=== PATIENT | male | born 1985 | race Caucasian/White ===

== ENCOUNTER 2018-08-12 13:28 | Emergency (ER) | payer BC, OTHER ==
[~2018-08-12] VITALS: Ht 160 cm; Wt 77.1 kg
[2018-08-12 13:45] LABS: *BILIRUBIN,URIN NEGATIVE (NEGATIVE); *BLOOD, URINE 3+ (NEGATIVE); *CLARITY,URINE CLOUDY (CLEAR); *COLOR,URINE RED (YELLOW); *KETONES,URINE NEGATIVE (NEGATIVE); LEUKOCYTE ESTERASE ,URINE NEGATIVE (NEGATIVE); NITRITE, URINE NEGATIVE (NEGATIVE); UGLUCOSE NEGATIVE (NEGATIVE)
[2018-08-12 13:46] LABS: BACTERIA,URINE FEW /HPF (NONE SEEN); RBC,URINE TNTC /HPF (0-3); SQUAMOUS EPITHELIAL CELL,UR FEW /HPF (NONE SEEN)
--- NOTE | 2018-08-12 14:04 | NUR ---
URINE SENT TO LAB.
[2018-08-12 14:18] LABS: BASOPHILS # (AUTO) 0.1 K/uL (0.0-8.0); BASOPHILS % (AUTO) 1.2 % (0.0-2.0); EOSINOPHILS # (AUTO) 0.2 K/uL (0.0-0.7); HEMATOCRIT 41.7 % (36.7-47.1); LYMPHOCYTES # (AUTO) 1.5 K/uL (20.0-40.0); LYMPHOCYTES % (AUTO) 16.3 % (20.5-51.5); MEAN CORPUSCULAR HEMOGLOBIN 29.6 uug (23.8-33.4); MEAN CORPUSCULAR HGB CONC 34 g/dL (32.5-36.3); MEAN CORPUSCULAR VOLUME 88.6 fL (73.0-96.2); MONOCYTES # (AUTO) 0.8 K/uL (2.0-10.0); NEUTROPHILS # (AUTO) 6.8 K/uL (1.8-8.9); NEUTROPHILS % (AUTO) 72.5 % (38.5-71.5); PLATELET COUNT (AUTO) 344 K/uL (152-348); RED BLOOD CELL COUNT(AUTO) 4.71 MIL/uL (4.06-5.63); WHITE BLOOD COUNT (AUTO) 9.4 K/uL (3.6-10.2)
[2018-08-12 14:28] LABS: POTASSIUM 3.4 mmol/L (3.5-5.1)
[2018-08-12 14:34] LABS: BILIRUBIN,DIRECT 0.1 mg/dL (0.0-0.2); BILIRUBIN,TOTAL 0.3 mg/dL (0.2-1.0); TOTAL PROTEIN, SERUM 8.1 g/dL (6.4-8.2)
--- NOTE | 2018-08-12 15:02 | NUR ---
DC AND FOLLOW UP INSTRUCTIONS GIVEN AND EXPLAINED TO PATIENT WHO STATES HE UNDERSTANDS ALL INSTRUCTIONS.
== END 2018-08-12 15:04 | disposition home or self-care (01) ==
LOC: ER 13:30
DX: R31.9 Hematuria, unspecified (principal)
CPT/HCPCS: 36415; 85025; 87086; A4663

== ENCOUNTER 2019-03-18 04:25 | Emergency (ER) | payer BC, OTHER ==
[~2019-03-18] VITALS: Ht 165.1 cm; Wt 74.8 kg
--- NOTE | 2019-03-18 04:25 | NUR ---
Dr. Madsen at bedside for MSE
[2019-03-18 05:17] LABS: *BILIRUBIN,URIN NEGATIVE (NEGATIVE); *BLOOD, URINE 3+ (NEGATIVE); *CLARITY,URINE SLIGHTLY CLOUDY (CLEAR); *COLOR,URINE YELLOW (YELLOW); *KETONES,URINE NEGATIVE (NEGATIVE); *UROBILINOGEN,URINE 0.2 E.U./dl (NORMAL); LEUKOCYTE ESTERASE ,URINE NEGATIVE (NEGATIVE); NITRITE, URINE NEGATIVE (NEGATIVE); UGLUCOSE NEGATIVE (NEGATIVE)
[2019-03-18 05:25] LABS: POTASSIUM 3.8 mmol/L (3.5-5.1)
[2019-03-18 05:29] LABS: BASOPHILS # (AUTO) 0.1 K/uL (0.0-8.0); BASOPHILS % (AUTO) 1.1 % (0.0-2.0); EOSINOPHILS # (AUTO) 0.2 K/uL (0.0-0.7); EOSINOPHILS % (AUTO) 2.4 % (0.0-7.0); HEMATOCRIT 42.6 % (36.7-47.1); HEMOGLOBIN 14.6 g/dL (12.5-16.3); LYMPHOCYTES # (AUTO) 2.1 K/uL (20.0-40.0); LYMPHOCYTES % (AUTO) 22.1 % (20.5-51.5); MEAN CORPUSCULAR HEMOGLOBIN 30.8 uug (23.8-33.4); MEAN CORPUSCULAR HGB CONC 34 g/dL (32.5-36.3); MEAN CORPUSCULAR VOLUME 89.5 fL (73.0-96.2); MONOCYTES # (AUTO) 0.8 K/uL (2.0-10.0); MONOCYTES % (AUTO) 9.1 % (0.0-11.0); NEUTROPHILS # (AUTO) 6.1 K/uL (1.8-8.9); NEUTROPHILS % (AUTO) 65.3 % (38.5-71.5); PLATELET COUNT (AUTO) 387 K/uL (152-348); RED BLOOD CELL COUNT(AUTO) 4.76 MIL/uL (4.06-5.63); WHITE BLOOD COUNT (AUTO) 9.4 K/uL (3.6-10.2)
[2019-03-18 05:31] LABS: BACTERIA,URINE NONE SEEN /HPF (NONE SEEN); MUCUS,URINE FEW /LPF (0-FEW); RBC,URINE 80-100 /HPF (0-3); SQUAMOUS EPITHELIAL CELL,UR FEW /HPF (NONE SEEN); WBC,URINE 0-3 /HPF (0-3)
[2019-03-18 05:35] LABS: *AMPHETAMINE, URINE NEGATIVE (NEGATIVE); *BARBITURATE, URINE NEGATIVE (NEGATIVE); *CANNABINOID, URINE NEGATIVE (NEGATIVE); *COCCAINE, URINE NEGATIVE (NEGATIVE); *OPIATE, URINE NEGATIVE (NEGATIVE); *PHENCYCLIDINE SCREEN,URINE NEGATIVE (NEGATIVE)
--- NOTE | 2019-03-18 06:56 | NUR ---
Patient discharged to home in stable conditon. Written and verbal after care instructions given. Patient verbalizes understanding of instructions. Patient ambulating with steady gait. Denies any dizziness, AHUMADA, blurred vision, nausea, vomiting.
[2019-03-18 06:58] VITALS: BP 157/104
== END 2019-03-18 06:56 | disposition home or self-care (01) ==
LOC: ER 04:27
DX: I10 Essential (primary) hypertension (principal); R31.9 Hematuria, unspecified; D47.3 Essential (hemorrhagic) thrombocythemia
CPT/HCPCS: 36415; 80307; 85025; 93005; A4663

== ENCOUNTER 2019-04-29 11:55 | Outpatient (CLI) | payer BC, OTHER | END 2019-04-29 23:59 | disposition home or self-care (01) | LOC: RT 11:55 | PROVIDERS: ATTEND Family Medicine | DX: I10 Essential (primary) hypertension (principal) | CPT/HCPCS: 93307 ==

== ENCOUNTER 2020-12-20 02:18 | Emergency (ER) | payer BC, OTHER ==
[~2020-12-20] VITALS: Ht 162.6 cm; Wt 81.6 kg
[2020-12-20 03:16] LABS: *BILIRUBIN,URIN NEGATIVE (NEGATIVE); *BLOOD, URINE 3+ (NEGATIVE); *CLARITY,URINE TURBID (CLEAR); *COLOR,URINE RED (YELLOW); *KETONES,URINE NEGATIVE (NEGATIVE); *UROBILINOGEN,URINE 0.2 E.U./dl (NORMAL); LEUKOCYTE ESTERASE ,URINE NEGATIVE (NEGATIVE); NITRITE, URINE NEGATIVE (NEGATIVE); UGLUCOSE NEGATIVE (NEGATIVE)
[2020-12-20 03:20] LABS: BACTERIA,URINE NONE SEEN /HPF (NONE SEEN); RBC,URINE TNTC /HPF (0-3); SQUAMOUS EPITHELIAL CELL,UR NONE SEEN /HPF (NONE SEEN); WBC,URINE 0-3 /HPF (0-3)
--- NOTE | 2020-12-20 03:28 | NUR ---
Patient discharged to home in stable condition. Written and verbal after care instructions given. Patient verbalizes understanding of instructions. Stressed follow up or return to ER for worsening s/s.
[2020-12-20 03:29] VITALS: BP 145/89
== END 2020-12-20 03:30 | disposition home or self-care (01) ==
LOC: ER 02:23
DX: R31.0 Gross hematuria (principal); I10 Essential (primary) hypertension; E78.5 Hyperlipidemia, unspecified
CPT/HCPCS: A4663

== ENCOUNTER 2021-04-18 21:48 | Emergency (ER) | payer BC, OTHER ==
[~2021-04-18] VITALS: Ht 157.5 cm; Wt 81.6 kg
[2021-04-18] MEDS ORDERED: IBUPROFEN 600 MG TABLET PO ONE (22:15)
[2021-04-18] MEDS ORDERED: IBUP-1955 PO (22:18)
[2021-04-18] MEDS ORDERED: IBUPROFEN 600 MG TABLET ONE (22:19)
== END 2021-04-18 22:31 | disposition home or self-care (01) ==
LOC: ER 21:51
DX: S90.31XA Contusion of right foot, initial encounter (principal); I10 Essential (primary) hypertension; E78.5 Hyperlipidemia, unspecified; Z79.1 Long term (current) use of non-steroidal anti-inflammatories (NSAID); X58.XXXA Exposure to other specified factors, initial encounter; Y93.89 Activity, other specified; Y92.89 Other specified places as the place of occurrence of the external cause; Y99.8 Other external cause status
CPT/HCPCS: 73630; A4663

== ENCOUNTER 2021-10-12 22:00 | Emergency (ER) | payer BC, OTHER ==
[~2021-10-12] VITALS: Ht 160 cm; Wt 80.7 kg
[~2021-10-12 22:00] MED LIST: IBUP-1955 PO
[2021-10-13 00:38] LABS: MEAN CORPUSCULAR HEMOGLOBIN 30.1 uug (23.8-33.4)
[2021-10-13 00:42] LABS: HEMATOCRIT 40.9 % (36.7-47.1); MEAN CORPUSCULAR VOLUME 86.1 fL (73.0-96.2); PLATELET COUNT (AUTO) 430 K/uL (152-348)
[2021-10-13 00:44] LABS: CREATININE 1.3 mg/dL (0.6-1.3); MAGNESIUM 1.9 mg/dL (1.8-2.4); POTASSIUM 3.1 mmol/L (3.5-5.1)
[2021-10-13] MEDS ORDERED: POTASSIUM BICARBONATE/CIT AC 25 MEQ TABLET.EFF PO ONE (01:00)
[2021-10-13] MEDS ORDERED: POTASSIUM BICARBONATE/CIT AC 25 MEQ TABLET.EFF ONE (01:23)
[2021-10-13] MEDS ORDERED: NAPR-1164 PO (02:51)
--- NOTE | 2021-10-13 03:42 | NUR ---
Patient discharged to home in stable condition. Written and verbal after care instructions given. Patient verbalizes understanding of instructions. Stressed follow up or return to ER for worsening s/s. Patient out of ER with steady gait, no acute signs of distress, VSS, all belongings taken, provided with copies of xray results.
[2021-10-13 03:43] VITALS: BP 145/90
== END 2021-10-13 05:15 | disposition home or self-care (01) ==
LOC: ER 22:00
DX: E08.22 Diabetes mellitus due to underlying condition with diabetic chronic kidney disease (principal); M76.62 Achilles tendinitis, left leg; E87.6 Hypokalemia; E83.42 Hypomagnesemia; I10 Essential (primary) hypertension
CPT/HCPCS: 36415; 73600; 83735; 85025; 85651; A4663

== ENCOUNTER 2022-11-03 21:41 | Emergency (ER) | payer BC, OTHER ==
[~2022-11-03] VITALS: Ht 160 cm; Wt 79.4 kg
[~2022-11-03 21:41] MED LIST changes: +NAPR-1164 PO
[2022-11-03 21:53] VITALS: O2SAT 99
== END 2022-11-03 23:34 | disposition home or self-care (01) ==
LOC: ER 21:43
DX: S92.251A Displaced fracture of navicular [scaphoid] of right foot, initial encounter for closed fracture (principal); S93.324A Dislocation of tarsometatarsal joint of right foot, initial encounter; Z79.1 Long term (current) use of non-steroidal anti-inflammatories (NSAID); X50.1XXA Overexertion from prolonged static or awkward postures, initial encounter; Y93.67 Activity, basketball; Y92.89 Other specified places as the place of occurrence of the external cause; Y99.8 Other external cause status
CPT/HCPCS: 73630; A4663

== ENCOUNTER 2023-03-27 00:53 | Inpatient (IN) | payer BC, OTHER ==
[~2023-03-27] VITALS: Ht 160 cm; Wt 80.3 kg
[2023-03-27] MEDS ORDERED: ONDANSETRON 4 MG/2 ML VIAL IV ONE (01:30)
[2023-03-27] MEDS ORDERED: HYDROMORPHONE 1 MG/1 ML DISP.SYRIN IV ONE (01:30)
[2023-03-27] MEDS ORDERED: IV NORMAL SALINE 1000 ML BAG IV ONE (01:30)
[2023-03-27] MEDS ORDERED: KETOROLAC TROMETHAMINE 15 MG INJ IVP ONE (01:30)
[2023-03-27] MEDS ORDERED: ONDANSETRON 4 MG/2 ML VIAL ONE (01:37)
[2023-03-27] MEDS ORDERED: HYDROMORPHONE 1 MG/1 ML DISP.SYRIN ONE (01:37)
[2023-03-27] MEDS ORDERED: KETOROLAC TROMETHAMINE 15 MG INJ ONE (01:37)
[2023-03-27 01:54] LABS: BASOPHILS # (AUTO) 0.2 K/UL (0.0-0.2); BASOPHILS % (AUTO) 0.9 % (0.0-2.0); EOSINOPHILS % (AUTO) 0.1 % (0.0-7.0); HEMATOCRIT 37.7 % (36.7-47.1); HEMOGLOBIN 12.8 g/dL (12.5-16.3); LYMPHOCYTES # (AUTO) 0.6 K/uL (0.8-4.8); LYMPHOCYTES % (AUTO) 2.5 % (20.5-51.5); MEAN CORPUSCULAR HEMOGLOBIN 30.4 uug (23.8-33.4); MEAN CORPUSCULAR HGB CONC 34 g/dL (32.5-36.3); MEAN CORPUSCULAR VOLUME 89.7 fL (73.0-96.2); MONOCYTES % (AUTO) 4.3 % (0.0-11.0); NEUTROPHILS # (AUTO) 21.1 K/uL (1.8-8.9); NEUTROPHILS % (AUTO) 92.2 % (38.5-71.5); PLATELET COUNT (AUTO) 460 K/uL (152-348); RED BLOOD CELL COUNT(AUTO) 4.21 MIL/uL (4.06-5.63); WHITE BLOOD COUNT (AUTO) 22.8 K/uL (3.6-10.2)
[2023-03-27 01:55] LABS: DIFFERENTIAL COMMENT 1
[2023-03-27 01:57] LABS: *BLOOD, URINE 3+ (NEGATIVE); *KETONES,URINE TRACE (NEGATIVE); *UROBILINOGEN,URINE 0.2 E.U./dl (NORMAL); LEUKOCYTE ESTERASE ,URINE TRACE (NEGATIVE); NITRITE, URINE NEGATIVE (NEGATIVE); PH,URINE 6.5 (5.0-8.0); UGLUCOSE NEGATIVE (NEGATIVE)
[2023-03-27 02:10] LABS: *BILIRUBIN,URIN 1+ (NEGATIVE); *PROTEIN,URINE 3+ (NEGATIVE)
[2023-03-27 02:11] LABS: *CLARITY,URINE SLIGHTLY CLOUDY (CLEAR); *COLOR,URINE AMBER (YELLOW)
[2023-03-27 02:13] LABS: CALCIUM 9.2 mg/dL (8.5-10.1); CREATININE 1.6 mg/dL (0.6-1.3); POTASSIUM 3.8 mmol/L (3.5-5.1)
[2023-03-27 02:19] LABS: BILIRUBIN,DIRECT 0.2 mg/dL (0.0-0.2); TOTAL PROTEIN, SERUM 8.7 g/dL (6.4-8.2)
[2023-03-27 02:30] LABS: BACTERIA,URINE FEW /HPF (NONE SEEN); RBC,URINE TNTC /HPF (0-3); SQUAMOUS EPITHELIAL CELL,UR NONE SEEN /HPF (NONE SEEN)
[2023-03-27] MEDS ORDERED: MORPHINE SULFATE 2 MG/1 ML DISP.SYRIN IV PRN (06:00)
[2023-03-27] MEDS ORDERED: CEFTRIAXONE 1 G in IV DEXTROSE 5% 50 ML IV SCH (06:00)
[2023-03-27 07:50] LABS: BASOPHILS # (AUTO) 0.1 K/UL (0.0-0.2); BASOPHILS % (AUTO) 0.4 % (0.0-2.0); HEMATOCRIT 34.5 % (36.7-47.1); HEMOGLOBIN 11.5 g/dL (12.5-16.3); LYMPHOCYTES # (AUTO) 0.6 K/uL (0.8-4.8); LYMPHOCYTES % (AUTO) 3.3 % (20.5-51.5); MEAN CORPUSCULAR HGB CONC 33 g/dL (32.5-36.3); MEAN CORPUSCULAR VOLUME 89.7 fL (73.0-96.2); MONOCYTES % (AUTO) 5.5 % (0.0-11.0); NEUTROPHILS # (AUTO) 16.3 K/uL (1.8-8.9); NEUTROPHILS % (AUTO) 90.8 % (38.5-71.5); PLATELET COUNT (AUTO) 434 K/uL (152-348); RED BLOOD CELL COUNT(AUTO) 3.85 MIL/uL (4.06-5.63); RED CELL DISTRIBUTION WIDTH 14.2 % (12.1-16.2); WHITE BLOOD COUNT (AUTO) 17.9 K/uL (3.6-10.2)
[2023-03-27 07:51] LABS: DIFFERENTIAL COMMENT 1
[2023-03-27] MEDS ORDERED: CEFTRIAXONE /D5W 50ML IVPB **ER PYXIS IV ONE (08:24)
[2023-03-27] MEDS ORDERED: MORPHINE SULFATE 2 MG/1 ML DISP.SYRIN ONE (12:15)
[2023-03-27 14:26] LABS: HEMATOCRIT 33.1 % (36.7-47.1); HEMOGLOBIN 10.9 g/dL (12.5-16.3)
[2023-03-27] MEDS ORDERED: MORPHINE SULFATE 4 MG/1 ML DISP.SYRIN ONE ×2 (14:27→18:15)
[2023-03-27] MEDS: MORPHINE SULFATE 4 MG/1 ML DISP.SYRIN IV PRN ×3 (14:37→22:59)
[2023-03-27] MEDS: IV NS 1000 ML 1,000 ML IV PRN ×2 (14:49→20:49)
[2023-03-27] MEDS ORDERED: ALLO100T PO (18:14)
[2023-03-27] MEDS ORDERED: ATOR20TA PO (18:14)
[2023-03-27] MEDS ORDERED: AMLO5TAB4 PO (18:14)
[2023-03-27] MEDS ORDERED: OLME20TA13 PO (18:14)
[2023-03-27] MEDS ORDERED: HYDROCODONE/APAP 10-325 MG TABLET ONE (19:29)
[2023-03-27] MEDS: HYDROCODONE/APAP 10-325 MG TABLET PO PRN (19:31)
[2023-03-27] MEDS: ONDANSETRON 4 MG/2 ML VIAL IV PRN (20:51)
[2023-03-27 21:04] VITALS: BP 155/85; TEMP 98.3; O2SAT 100
[2023-03-27 22:10] VITALS: O2SAT 98
[2023-03-28] VITALS (10 sets, daily range): BP systolic 110–170; BP diastolic 55–93; TEMP 98–100.6; O2SAT 93–100
[2023-03-28 02:07] LABS: HEMATOCRIT 29.3 % (36.7-47.1); HEMOGLOBIN 9.9 g/dL (12.5-16.3)
[2023-03-28] MEDS: ONDANSETRON 4 MG/2 ML VIAL IV PRN (03:01)
[2023-03-28] MEDS: MORPHINE SULFATE 4 MG/1 ML DISP.SYRIN IV PRN (03:01)
[2023-03-28] MEDS: IV NS 1000 ML 1,000 ML IV PRN (03:02)
[2023-03-28 07:46] LABS: BASOPHILS % (AUTO) 0.1 % (0.0-2.0); HEMATOCRIT 25.8 % (36.7-47.1); HEMOGLOBIN 8.6 g/dL (12.5-16.3); LYMPHOCYTES # (AUTO) 1.1 K/uL (0.8-4.8); MEAN CORPUSCULAR HEMOGLOBIN 30.1 uug (23.8-33.4); MEAN CORPUSCULAR HGB CONC 34 g/dL (32.5-36.3); MEAN CORPUSCULAR VOLUME 89.8 fL (73.0-96.2); MONOCYTES # (AUTO) 2.7 K/uL (0.1-1.30); MONOCYTES % (AUTO) 12.9 % (0.0-11.0); NEUTROPHILS # (AUTO) 17.4 K/uL (1.8-8.9); PLATELET COUNT (AUTO) 352 K/uL (152-348); RED BLOOD CELL COUNT(AUTO) 2.87 MIL/uL (4.06-5.63); RED CELL DISTRIBUTION WIDTH 14.2 % (12.1-16.2); WHITE BLOOD COUNT (AUTO) 21.2 K/uL (3.6-10.2)
[2023-03-28 07:54] LABS: DIFFERENTIAL COMMENT 1
[2023-03-28 08:10] LABS: CALCIUM 8.1 mg/dL (8.5-10.1); CREATININE 1.6 mg/dL (0.6-1.3); MAGNESIUM 1.9 mg/dL (1.8-2.4); PHOSPHOROUS 4.3 mg/dL (2.5-4.9); POTASSIUM 3.9 mmol/L (3.5-5.1)
[2023-03-28] MEDS ORDERED: CEFTRIAXONE 1 G in IV DEXTROSE 5% 50 ML IV SCH (09:00)
[2023-03-28] MEDS ORDERED: CEFEPIME HCL 1 G in IV DEXTROSE 5% 50 ML IV SCH ×2 (09:15→18:00)
[2023-03-28] MEDS: HYDROCODONE/APAP 10-325 MG TABLET PO PRN ×2 (09:23→16:25)
[2023-03-28] MEDS ORDERED: VANCOMYCIN IV 1,250 MG in IV DEXTROSE 5% 250 ML IV SCH (12:00)
[2023-03-28 14:24] LABS: HEMATOCRIT 23.6 % (36.7-47.1)
[2023-03-28 17:06] LABS: HEMATOCRIT 22.5 % (36.7-47.1); HEMOGLOBIN 7.6 g/dL (12.5-16.3)
[2023-03-28] MEDS: ACETAMINOPHEN 325 MG TABLET PO PRN (20:29)
[2023-03-28] MEDS: AMLODIPINE 5 MG TABLET PO SCH (22:37)
[2023-03-28] MEDS ORDERED: IV 1/2NS 1000 ML 1,000 ML IV ONE (23:00)
[2023-03-29] VITALS: BP 126/81; TEMP 98.8; O2SAT 99
[2023-03-29 01:15] LABS: HEMATOCRIT 25.1 % (36.7-47.1); HEMOGLOBIN 8.7 g/dL (12.5-16.3)
[2023-03-29 04:00] VITALS: BP 135/97; TEMP 98.6; O2SAT 99
[2023-03-29] MEDS: HYDROCODONE/APAP 10-325 MG TABLET PO PRN ×3 (04:12→21:35)
[2023-03-29] MEDS: PANTOPRAZOLE SODIUM 40 MG TABLET.DR PO SCH (07:27)
[2023-03-29 07:40] LABS: BASOPHILS # (AUTO) 0.1 K/UL (0.0-0.2); BASOPHILS % (AUTO) 0.5 % (0.0-2.0); EOSINOPHILS # (AUTO) 0.1 K/uL (0.0-0.7); EOSINOPHILS % (AUTO) 0.4 % (0.0-7.0); HEMATOCRIT 25.6 % (36.7-47.1); HEMOGLOBIN 8.7 g/dL (12.5-16.3); LYMPHOCYTES # (AUTO) 1.2 K/uL (0.8-4.8); LYMPHOCYTES % (AUTO) 6.7 % (20.5-51.5); MEAN CORPUSCULAR HEMOGLOBIN 30.6 uug (23.8-33.4); MEAN CORPUSCULAR HGB CONC 34 g/dL (32.5-36.3); MONOCYTES # (AUTO) 1.8 K/uL (0.1-1.30); MONOCYTES % (AUTO) 10.2 % (0.0-11.0); NEUTROPHILS # (AUTO) 14.8 K/uL (1.8-8.9); NEUTROPHILS % (AUTO) 82.2 % (38.5-71.5); PLATELET COUNT (AUTO) 330 K/uL (152-348); RED BLOOD CELL COUNT(AUTO) 2.84 MIL/uL (4.06-5.63); RED CELL DISTRIBUTION WIDTH 14.4 % (12.1-16.2)
[2023-03-29 07:49] LABS: DIFFERENTIAL COMMENT 1
[2023-03-29 07:53] LABS: CREATININE 1.4 mg/dL (0.6-1.3); PHOSPHOROUS 2.6 mg/dL (2.5-4.9); POTASSIUM 3.5 mmol/L (3.5-5.1)
[2023-03-29] MEDS: CEFEPIME HCL 1 G in IV DEXTROSE 5% 50 ML IV SCH ×2 (09:13→20:45)
[2023-03-29] MEDS: ACETAMINOPHEN 325 MG TABLET PO PRN ×2 (11:12→22:41)
[2023-03-29] MEDS: DOCUSATE SODIUM 100 MG CAPSULE PO SCH ×2 (11:12→20:45)
[2023-03-29] MEDS ORDERED: MIRALAX 17 GM POWD.PACK PO PRN (11:15)
[2023-03-29] MEDS: IV NS 1000 ML 1,000 ML IV PRN (11:16)
[2023-03-29 12:00] VITALS: BP 141/91; TEMP 100; O2SAT 96
[2023-03-29 15:39] VITALS: BP 128/99; TEMP 98.1; O2SAT 99
[2023-03-29] MEDS: AMLODIPINE 5 MG TABLET PO SCH (17:14)
[2023-03-29 20:11] VITALS: BP 125/80; TEMP 99.2; O2SAT 98
[2023-03-29 22:39] VITALS: BP 126/81; TEMP 99.8; O2SAT 98
[2023-03-30] MEDS: IV NS 1000 ML 1,000 ML IV PRN ×2 (00:53→14:20)
[2023-03-30 04:49] VITALS: BP 134/76; TEMP 99.8; O2SAT 100
[2023-03-30] MEDS: PANTOPRAZOLE SODIUM 40 MG TABLET.DR PO SCH (06:47)
[2023-03-30 07:51] LABS: BASOPHILS # (AUTO) 0.1 K/UL (0.0-0.2); BASOPHILS % (AUTO) 0.6 % (0.0-2.0); EOSINOPHILS # (AUTO) 0.3 K/uL (0.0-0.7); EOSINOPHILS % (AUTO) 1.8 % (0.0-7.0); HEMATOCRIT 27.6 % (36.7-47.1); HEMOGLOBIN 9.3 g/dL (12.5-16.3); LYMPHOCYTES # (AUTO) 1.2 K/uL (0.8-4.8); LYMPHOCYTES % (AUTO) 6.8 % (20.5-51.5); MEAN CORPUSCULAR HEMOGLOBIN 30.6 uug (23.8-33.4); MEAN CORPUSCULAR HGB CONC 34 g/dL (32.5-36.3); MEAN CORPUSCULAR VOLUME 90.7 fL (73.0-96.2); MONOCYTES # (AUTO) 1.8 K/uL (0.1-1.30); MONOCYTES % (AUTO) 10.6 % (0.0-11.0); NEUTROPHILS # (AUTO) 13.5 K/uL (1.8-8.9); NEUTROPHILS % (AUTO) 80.2 % (38.5-71.5); PLATELET COUNT (AUTO) 428 K/uL (152-348); RED BLOOD CELL COUNT(AUTO) 3.04 MIL/uL (4.06-5.63); RED CELL DISTRIBUTION WIDTH 14.2 % (12.1-16.2); WHITE BLOOD COUNT (AUTO) 16.9 K/uL (3.6-10.2)
[2023-03-30] MEDS: DOCUSATE SODIUM 100 MG CAPSULE PO SCH ×2 (08:01→20:57)
[2023-03-30 08:02] LABS: DIFFERENTIAL COMMENT 1
[2023-03-30] MEDS: CEFEPIME HCL 1 G in IV DEXTROSE 5% 50 ML IV SCH ×2 (08:04→20:57)
[2023-03-30 08:08] LABS: CALCIUM 8.4 mg/dL (8.5-10.1); CREATININE 1.3 mg/dL (0.6-1.3); PHOSPHOROUS 2.8 mg/dL (2.5-4.9); POTASSIUM 3.8 mmol/L (3.5-5.1)
[2023-03-30] MEDS: HYDROCODONE/APAP 10-325 MG TABLET PO PRN ×2 (10:08→18:16)
[2023-03-30 12:13] VITALS: BP 124/76; TEMP 99.4; O2SAT 97
[2023-03-30] MEDS: FERROUS SULFATE 325 MG TABEC PO SCH ×2 (14:18→20:57)
[2023-03-30 16:19] VITALS: BP 149/90; TEMP 99.7; O2SAT 94
[2023-03-30] MEDS: AMLODIPINE 5 MG TABLET PO SCH (17:09)
[2023-03-30 20:57] VITALS: BP 140/74; TEMP 101; O2SAT 90
[2023-03-30] MEDS: ACETAMINOPHEN 325 MG TABLET PO PRN (21:04)
[2023-03-30 23:09] VITALS: BP 120/75; TEMP 99.2; O2SAT 96
[2023-03-31] MEDS: IV NS 1000 ML 1,000 ML IV PRN ×2 (04:21→17:26)
[2023-03-31] MEDS: HYDROCODONE/APAP 10-325 MG TABLET PO PRN ×3 (04:59→23:45)
[2023-03-31 05:08] VITALS: BP 139/91; TEMP 99.2; O2SAT 100
[2023-03-31] MEDS: PANTOPRAZOLE SODIUM 40 MG TABLET.DR PO SCH (06:06)
[2023-03-31 07:37] LABS: BASOPHILS # (AUTO) 0.1 K/UL (0.0-0.2); BASOPHILS % (AUTO) 0.4 % (0.0-2.0); EOSINOPHILS # (AUTO) 0.3 K/uL (0.0-0.7); EOSINOPHILS % (AUTO) 2.3 % (0.0-7.0); HEMATOCRIT 26.1 % (36.7-47.1); HEMOGLOBIN 8.9 g/dL (12.5-16.3); LYMPHOCYTES # (AUTO) 1.1 K/uL (0.8-4.8); MEAN CORPUSCULAR HEMOGLOBIN 30.5 uug (23.8-33.4); MEAN CORPUSCULAR HGB CONC 34 g/dL (32.5-36.3); MEAN CORPUSCULAR VOLUME 89.1 fL (73.0-96.2); MONOCYTES # (AUTO) 1.7 K/uL (0.1-1.30); MONOCYTES % (AUTO) 11.1 % (0.0-11.0); NEUTROPHILS # (AUTO) 12.2 K/uL (1.8-8.9); NEUTROPHILS % (AUTO) 79.2 % (38.5-71.5); PLATELET COUNT (AUTO) 474 K/uL (152-348); RED BLOOD CELL COUNT(AUTO) 2.93 MIL/uL (4.06-5.63); RED CELL DISTRIBUTION WIDTH 14.1 % (12.1-16.2); WHITE BLOOD COUNT (AUTO) 15.3 K/uL (3.6-10.2)
[2023-03-31 07:44] LABS: DIFFERENTIAL COMMENT 1
[2023-03-31 07:49] LABS: CALCIUM 8.3 mg/dL (8.5-10.1); CREATININE 1.2 mg/dL (0.6-1.3); PHOSPHOROUS 2.6 mg/dL (2.5-4.9); POTASSIUM 3.6 mmol/L (3.5-5.1)
[2023-03-31] MEDS: CEFEPIME HCL 1 G in IV DEXTROSE 5% 50 ML IV SCH ×2 (08:13→20:04)
[2023-03-31] MEDS: DOCUSATE SODIUM 100 MG CAPSULE PO SCH ×2 (08:19→20:00)
[2023-03-31] MEDS: FERROUS SULFATE 325 MG TABEC PO SCH ×2 (08:19→20:00)
[2023-03-31 11:27] VITALS: BP 138/82; TEMP 99; O2SAT 98
[2023-03-31 15:49] VITALS: BP 125/76; TEMP 99.5; O2SAT 96
[2023-03-31] MEDS: AMLODIPINE 5 MG TABLET PO SCH (17:08)
[2023-03-31 20:00] VITALS: BP 145/83; TEMP 99.1
[2023-04-01] MEDS: PANTOPRAZOLE SODIUM 40 MG TABLET.DR PO SCH (06:11)
[2023-04-01 07:35] LABS: BASOPHILS # (AUTO) 0.1 K/UL (0.0-0.2); BASOPHILS % (AUTO) 0.9 % (0.0-2.0); EOSINOPHILS # (AUTO) 0.3 K/uL (0.0-0.7); EOSINOPHILS % (AUTO) 1.9 % (0.0-7.0); HEMATOCRIT 25.6 % (36.7-47.1); HEMOGLOBIN 8.8 g/dL (12.5-16.3); LYMPHOCYTES # (AUTO) 1.7 K/uL (0.8-4.8); LYMPHOCYTES % (AUTO) 11.4 % (20.5-51.5); MEAN CORPUSCULAR HEMOGLOBIN 30.7 uug (23.8-33.4); MEAN CORPUSCULAR HGB CONC 35 g/dL (32.5-36.3); MONOCYTES # (AUTO) 1.5 K/uL (0.1-1.30); MONOCYTES % (AUTO) 10.2 % (0.0-11.0); NEUTROPHILS % (AUTO) 75.6 % (38.5-71.5); PLATELET COUNT (AUTO) 518 K/uL (152-348); RED BLOOD CELL COUNT(AUTO) 2.87 MIL/uL (4.06-5.63); RED CELL DISTRIBUTION WIDTH 13.8 % (12.1-16.2); WHITE BLOOD COUNT (AUTO) 14.6 K/uL (3.6-10.2)
[2023-04-01 07:51] LABS: DIFFERENTIAL COMMENT 1
[2023-04-01 08:13] LABS: CALCIUM 8.8 mg/dL (8.5-10.1); CREATININE 1.3 mg/dL (0.6-1.3); MAGNESIUM 1.9 mg/dL (1.8-2.4); PHOSPHOROUS 3.2 mg/dL (2.5-4.9); POTASSIUM 3.8 mmol/L (3.5-5.1)
[2023-04-01] MEDS: FERROUS SULFATE 325 MG TABEC PO SCH (08:47)
[2023-04-01] MEDS: DOCUSATE SODIUM 100 MG CAPSULE PO SCH (08:47)
== END 2023-04-01 15:15 | disposition home or self-care (01) | DRG 871 ==
LOC: ER 00:59 → TRANSITION 09:53 → MEDSURG3 20:09 → TELE3 03-28 19:41 → MEDSURG3 03-31 09:10
PROVIDERS: ADMIT Nurse Practitioner Acute Care; ATTEND Internal Medicine
PROC: 30233N1 Transfusion of Nonautologous Red Blood Cells into Peripheral Vein, Percutaneous Approach (ICD-10-PCS; principal; 2023-03-28)
DX: A41.9 Sepsis, unspecified organism (principal); N17.0 Acute kidney failure with tubular necrosis; Q61.2 Polycystic kidney, adult type; N39.0 Urinary tract infection, site not specified; N28.89 Other specified disorders of kidney and ureter; R31.0 Gross hematuria; D50.0 Iron deficiency anemia secondary to blood loss (chronic); I10 Essential (primary) hypertension; M10.9 Gout, unspecified; E66.9 Obesity, unspecified; Z68.31 Body mass index [BMI] 31.0-31.9, adult; I70.0 Atherosclerosis of aorta; R73.03 Prediabetes; K76.89 Other specified diseases of liver; E78.5 Hyperlipidemia, unspecified; Z84.1 Family history of disorders of kidney and ureter
CPT/HCPCS: 36415; 71045; 76770; 83550; 83690; 83735; 84100; 84550; 85018; 85025; 86850; 86900; 86901; 86920; 87040; G0378; J0692; J0696; J1170; J1885; J2270; J2405; J7040; J7050; P9016

== ENCOUNTER 2023-05-08 07:59 | Outpatient (CLI) | payer BC, OTHER ==
[~2023-05-08 07:59] MED LIST changes: +ALLO100T PO; +AMLO5TAB4 PO; +ATOR20TA PO; -IBUP-1955 PO; -NAPR-1164 PO; +OLME20TA13 PO
== END 2023-05-08 23:59 | disposition home or self-care (01) ==
LOC: RAD 07:59
PROVIDERS: ATTEND Urology
DX: K68.3 Retroperitoneal hematoma (principal); N28.1 Cyst of kidney, acquired; K76.89 Other specified diseases of liver

== ENCOUNTER 2023-06-11 07:55 | Outpatient (CLI) | payer BC, OTHER ==
[2023-06-11 08:10] LABS: BASOPHILS # (AUTO) 0.2 K/UL (0.0-0.2); EOSINOPHILS # (AUTO) 0.4 K/uL (0.0-0.7); EOSINOPHILS % (AUTO) 4.1 % (0.0-7.0); HEMATOCRIT 38.9 % (36.7-47.1); HEMOGLOBIN 13.2 g/dL (12.5-16.3); MEAN CORPUSCULAR HEMOGLOBIN 29.3 uug (23.8-33.4); MEAN CORPUSCULAR HGB CONC 34 g/dL (32.5-36.3); MONOCYTES # (AUTO) 0.9 K/uL (0.1-1.30); MONOCYTES % (AUTO) 9.6 % (0.0-11.0); NEUTROPHILS % (AUTO) 63.3 % (38.5-71.5); PLATELET COUNT (AUTO) 424 K/uL (152-348); RED BLOOD CELL COUNT(AUTO) 4.52 MIL/uL (4.06-5.63); RED CELL DISTRIBUTION WIDTH 15.5 % (12.1-16.2); WHITE BLOOD COUNT (AUTO) 9.5 K/uL (3.6-10.2)
[2023-06-11 08:12] LABS: DIFFERENTIAL COMMENT 1
[2023-06-11 08:55] LABS: ALBUMIN 4.1 g/dL (3.4-5.0); BILIRUBIN,TOTAL 0.3 mg/dL (0.2-1.0); CREATININE 1.6 mg/dL (0.6-1.3); POTASSIUM 3.9 mmol/L (3.5-5.1); TOTAL PROTEIN, SERUM 8.4 g/dL (6.4-8.2)
== END 2023-06-11 23:59 | disposition home or self-care (01) ==
LOC: LAB 07:55
PROVIDERS: ATTEND Internal Medicine Hematology & Oncology
DX: Z13.228 Encounter for screening for other metabolic disorders (principal); D64.9 Anemia, unspecified
CPT/HCPCS: 36415; 83550; 85025

== ENCOUNTER 2023-11-06 07:48 | Outpatient (CLI) | payer BC, OTHER ==
[2023-11-06 08:09] LABS: BASOPHILS # (AUTO) 0.1 K/UL (0.0-0.2); BASOPHILS % (AUTO) 1.1 % (0.0-2.0); EOSINOPHILS # (AUTO) 0.3 K/uL (0.0-0.7); EOSINOPHILS % (AUTO) 3.2 % (0.0-7.0); HEMATOCRIT 41.2 % (36.7-47.1); LYMPHOCYTES # (AUTO) 1.5 K/uL (0.8-4.8); LYMPHOCYTES % (AUTO) 13.7 % (20.5-51.5); MEAN CORPUSCULAR HEMOGLOBIN 30.7 uug (23.8-33.4); MEAN CORPUSCULAR HGB CONC 34 g/dL (32.5-36.3); MEAN CORPUSCULAR VOLUME 90.4 fL (73.0-96.2); MONOCYTES # (AUTO) 1.1 K/uL (0.1-1.30); MONOCYTES % (AUTO) 9.9 % (0.0-11.0); NEUTROPHILS # (AUTO) 7.7 K/uL (1.8-8.9); NEUTROPHILS % (AUTO) 72.1 % (38.5-71.5); PLATELET COUNT (AUTO) 358 K/uL (152-348); RED BLOOD CELL COUNT(AUTO) 4.56 MIL/uL (4.06-5.63); RED CELL DISTRIBUTION WIDTH 14.3 % (12.1-16.2); WHITE BLOOD COUNT (AUTO) 10.7 K/uL (3.6-10.2)
[2023-11-06 08:18] LABS: DIFFERENTIAL COMMENT 1
[2023-11-06 08:48] LABS: CALCIUM 9.3 mg/dL (8.5-10.1); CREATININE 1.6 mg/dL (0.6-1.3); POTASSIUM 3.8 mmol/L (3.5-5.1)
[2023-11-06 08:49] LABS: ALBUMIN 4.2 g/dL (3.4-5.0); BILIRUBIN,TOTAL 0.5 mg/dL (0.2-1.0); TOTAL PROTEIN, SERUM 8.6 g/dL (6.4-8.2)
== END 2023-11-06 23:59 | disposition home or self-care (01) ==
LOC: LAB 07:48
PROVIDERS: ATTEND Internal Medicine Hematology & Oncology
DX: D50.9 Iron deficiency anemia, unspecified (principal)
CPT/HCPCS: 36415; 83550; 85025

== ENCOUNTER 2024-07-08 14:25 | Outpatient (CLI) | payer BC, OTHER ==
[2024-07-08 14:44] LABS: BASOPHILS # (AUTO) 0.1 K/UL (0.0-0.2); BASOPHILS % (AUTO) 0.7 % (0.0-2.0); EOSINOPHILS # (AUTO) 0.4 K/uL (0.0-0.7); EOSINOPHILS % (AUTO) 3.5 % (0.0-7.0); HEMATOCRIT 40.4 % (36.7-47.1); HEMOGLOBIN 13.5 g/dL (12.5-16.3); LYMPHOCYTES # (AUTO) 1.8 K/uL (0.8-4.8); LYMPHOCYTES % (AUTO) 15.7 % (20.5-51.5); MEAN CORPUSCULAR HEMOGLOBIN 30.8 uug (23.8-33.4); MEAN CORPUSCULAR HGB CONC 34 g/dL (32.5-36.3); MEAN CORPUSCULAR VOLUME 91.9 fL (73.0-96.2); MONOCYTES # (AUTO) 0.8 K/uL (0.1-1.30); MONOCYTES % (AUTO) 7.1 % (0.0-11.0); NEUTROPHILS # (AUTO) 8.5 K/uL (1.8-8.9); PLATELET COUNT (AUTO) 385 K/uL (152-348); RED CELL DISTRIBUTION WIDTH 14.8 % (12.1-16.2); WHITE BLOOD COUNT (AUTO) 11.6 K/uL (3.6-10.2)
[2024-07-08 14:47] LABS: DIFFERENTIAL COMMENT 1
[2024-07-08 15:10] LABS: ALBUMIN 3.9 g/dL (3.4-5.0); BILIRUBIN,TOTAL 0.6 mg/dL (0.2-1.0); CALCIUM 9.1 mg/dL (8.5-10.1); CREATININE 1.6 mg/dL (0.6-1.3); TOTAL PROTEIN, SERUM 8.4 g/dL (6.4-8.2)
== END 2024-07-08 23:59 | disposition home or self-care (01) ==
LOC: LAB 14:25
PROVIDERS: ATTEND Internal Medicine Hematology & Oncology
DX: Z13.228 Encounter for screening for other metabolic disorders (principal); D64.9 Anemia, unspecified
CPT/HCPCS: 36415; 85025

== ENCOUNTER 2024-07-20 17:51 | Emergency (ER) | payer BC, OTHER ==
[~2024-07-20] VITALS: Ht 160 cm; Wt 80.7 kg
[2024-07-20] MEDS ORDERED: ERYT3.5O24 LEFTEYE (17:58)
[2024-07-20] MEDS ORDERED: ALLO300T2 PO (18:01)
[2024-07-20 18:06] VITALS: BP 143/109; O2SAT 98
== END 2024-07-20 18:06 | disposition home or self-care (01) ==
LOC: ER 18:01
DX: H10.32 Unspecified acute conjunctivitis, left eye (principal); E11.9 Type 2 diabetes mellitus without complications; E78.5 Hyperlipidemia, unspecified; I10 Essential (primary) hypertension; Z79.899 Other long term (current) drug therapy; Z88.7 Allergy status to serum and vaccine; Z87.448 Personal history of other diseases of urinary system
CPT/HCPCS: A4606; A4663

== ENCOUNTER 2024-09-09 14:50 | Outpatient (CLI) | payer BC, OTHER ==
[~2024-09-09 14:50] MED LIST changes: -ALLO100T PO; +ALLO300T2 PO; +ERYT3.5O24 LEFTEYE
[2024-09-09 15:03] LABS: PLATELET COUNT (AUTO) 364 K/uL (152-348); RED BLOOD CELL COUNT(AUTO) 4.52 MIL/uL (4.06-5.63); RED CELL DISTRIBUTION WIDTH 14.7 % (12.1-16.2); WHITE BLOOD COUNT (AUTO) 11.9 K/uL (3.6-10.2)
[2024-09-09 15:27] LABS: ASPARTATE AMINOTRANSFERASE 12.0 U/L (15-37); CREATININE 1.7 mg/dL (0.6-1.3); SODIUM SERUM 136.0 mmol/L (136-145); TOTAL PROTEIN, SERUM 8.2 g/dL (6.4-8.2); UREA NITROGEN, BLOOD 30.0 mg/dL (7-18)
[2024-09-09 15:31] LABS: IRON, SERUM 45.0 ug/dL (50-175)
== END 2024-09-09 23:59 | disposition home or self-care (01) ==
LOC: LAB 14:50
PROVIDERS: ATTEND Internal Medicine Hematology & Oncology
DX: Z13.228 Encounter for screening for other metabolic disorders (principal); D64.9 Anemia, unspecified
CPT/HCPCS: 36415; 83550; 85025

== ENCOUNTER 2024-10-07 10:32 | Outpatient (CLI) | payer BC, OTHER ==
[2024-10-07 10:47] LABS: PLATELET COUNT (AUTO) 410 K/uL (152-348); RED BLOOD CELL COUNT(AUTO) 4.33 MIL/uL (4.06-5.63); RED CELL DISTRIBUTION WIDTH 14.3 % (12.1-16.2); WHITE BLOOD COUNT (AUTO) 11.4 K/uL (3.6-10.2)
[2024-10-07 12:01] LABS: IRON, SERUM 48.0 ug/dL (50-175)
[2024-10-07 12:13] LABS: ASPARTATE AMINOTRANSFERASE 21.0 U/L (15-37); CREATININE 1.9 mg/dL (0.6-1.3); SODIUM SERUM 143.0 mmol/L (136-145); TOTAL PROTEIN, SERUM 8.2 g/dL (6.4-8.2); UREA NITROGEN, BLOOD 24.0 mg/dL (7-18)
== END 2024-10-07 23:59 | disposition home or self-care (01) ==
LOC: LAB 10:32
PROVIDERS: ATTEND Internal Medicine Hematology & Oncology
DX: Z13.228 Encounter for screening for other metabolic disorders (principal); D64.9 Anemia, unspecified
CPT/HCPCS: 36415; 83550; 85025

== ENCOUNTER 2025-02-18 11:56 | Outpatient (CLI) | payer BC, OTHER ==
[~2025-02-18 11:56] MED LIST changes: -AMLO5TAB4 PO; +AMLO5TAB6 PO
[2025-02-18 12:10] LABS: PLATELET COUNT (AUTO) 379 K/uL (152-348); RED BLOOD CELL COUNT(AUTO) 4.28 MIL/uL (4.06-5.63); RED CELL DISTRIBUTION WIDTH 15.0 % (12.1-16.2); WHITE BLOOD COUNT (AUTO) 10.2 K/uL (3.6-10.2)
[2025-02-18 12:35] LABS: IRON, SERUM 70.0 ug/dL (50-175)
[2025-02-18 12:39] LABS: ASPARTATE AMINOTRANSFERASE 15.0 U/L (15-37); CREATININE 2.0 mg/dL (0.6-1.3); SODIUM SERUM 142.0 mmol/L (136-145); TOTAL PROTEIN, SERUM 8.5 g/dL (6.4-8.2); UREA NITROGEN, BLOOD 25.0 mg/dL (7-18)
== END 2025-02-18 23:59 | disposition home or self-care (01) ==
LOC: LAB 11:56
PROVIDERS: ATTEND Emergency Medicine
DX: D50.9 Iron deficiency anemia, unspecified (principal); Z13.0 Encounter for screening for diseases of the blood and blood-forming organs and certain disorders involving the immune mechanism; D72.829 Elevated white blood cell count, unspecified; D75.839 Thrombocytosis, unspecified
CPT/HCPCS: 36415; 83550; 85025